=== PATIENT | female | born 1995 | race Caucasian/White ===

== ENCOUNTER 2018-05-10 17:03 | Emergency (ER) | payer MEDICAID ==
[2018-05-10] MEDS: ONDANSETRON (ODT) 4 MG TAB ODT (19:01)
[2018-05-10] MEDS: HYDROCODONE/APAP (10/325) TAB PO (19:02)
== END 2018-05-10 19:33 | disposition home or self-care (01) ==
LOC: FTE 17:03
DX: K04.7 Periapical abscess without sinus (principal)
CPT/HCPCS: 99283; Z7502